=== PATIENT | male | born 1965 | race Caucasian/White ===

== ENCOUNTER 2016-10-10 16:19 | Inpatient (IN) | payer OTHER ==
[~2016-10-10] VITALS: Ht 175.3 cm; Wt 71.5 kg
[~2016-10-10 16:19] MED LIST: ACET-1256 PO; AMLO-114 PO; ASPEC81 PO; ATOR-24 PO; CALC625T PO; DOCU-94 PO; FLUT0.0533; LPR25 PO; LSN25 PO; NTRSLP4 SL; PLV75 PO; VITAOIN TOP; ZNTT/150 PO
--- NOTE | 2016-10-10 16:35 | EMERGENCY ROOM VISIT NOTE ---
History Report prepared by Milagros: Harpal Meyer Under the Supervision of: Dr. Benjamin Varela D.O. First contact with patient: 16:24 Stated Complaint: CHEST PAIN /FR [facility] History of Present Illness The patient is a 51 year old male who presents to the Emergency Room with complaints of intermittent left-sided chest pain that started at 1435 today. The pain was initially constant but has not become intermittent. The pain is worse with movement but not with breathing. He has some shortness of breath. He denies nausea or vomiting, leg pain or swelling. He was given Aspirin and nitroglycerin prior to arrival. The patient has a history of NM, for which he was seen by [facility]. He had three stents placed. His discomfort today feels like previous NM but is less severe. He also has a history of neuropathy. He is a smoker. The patient is a prisoner at [facility]. Source of History: patient Onset: 1435 today Position: chest (left) Timing: intermittent Modifying Factors (Worsening): movement Associated Symptoms: + SOB, No nausea, No vomiting Review of Systems See HPI for pertinent positives & negatives. A total of 10 systems reviewed and were otherwise negative. Past Medical & Surgical Medical Problems: (1) Chest pain radiating to arm (2) Chronic back pain (3) Coronary artery disease (4) Precordial chest pain Surgical Problems: (1) H/O percutaneous transluminal coronary angioplasty (2) Stented coronary artery Family History Heart disease Hypertension Stroke Social History Smoking Status: Current Every Day Smoker Alcohol Use: none Drug Use: none Marital Status: single Housing Status: other Current/Historical Medications Scheduled Amlodipine (Norvasc), 10 MG PO DAILY Aspirin (Aspirin EC Low Dose), 81 MG PO QAM Atorvastatin (Lipitor), 40 MG PO DAILY Calcium Polycarbophil (Fibercon), 2 CAP PO BID Clopidogrel Bisulfate (Clopidogrel), 75 MG PO QAM Docusate Sodium (Colace), 100 MG PO BID Fluticasone Propionate (Cutivate), 1 APPLN TID Lisinopril (Lisinopril), 2.5 MG PO QAM Metoprolol Tartrate (Lopressor), 12.5 MG PO BID Ranitidine (Zantac), 150 MG PO BID Vitamins A & D (Topical) (Vitamin A & D), 1 APPLN TOP BID Scheduled PRN Acetaminophen (Tylenol), 1,000 MG PO BID PRN for Headache Nitroglycerin (Nitrostat), 0.4 MG SL UD PRN for Chest Pain Allergies Coded Allergies: BEE STING (Verified Allergy, Unknown, ANAPHYLAXIS, 10/10/16) Uncoded Allergies: STEROIDS (Allergy, Intermediate, TACHYCARDIA, 05/12/15) SEAFOOD (Allergy, Unknown, UNKNOWN, 01/01/16) Physical Exam Vital Signs Date Time Temp Pulse Resp B/P Pulse Ox O2 Delivery O2 Flow Rate FiO2 10/10/16 20:00 57 18 130/88 97 Room Air 10/10/16 19:24 57 18 118/74 97 Room Air 10/10/16 17:56 75 18 155/94 96 Room Air 10/10/16 17:04 58 10/10/16 16:35 96 Room Air 10/10/16 16:30 36.7 60 18 122/75 96 Room Air 10/10/16 16:30 96 Room Air Physical Exam GENERAL: Patient is awake, alert, and in no acute distress. Patient is resting comfortably and showing no signs of anxiety EYES: The conjunctivae are clear. The pupils are round and reactive. EARS, NOSE, MOUTH AND THROAT: The nose is without any evidence of any deformity. Mucous membranes are moist tongue is midline NECK: The neck is nontender and supple. RESPIRATORY: Normal respiratory effort is noted there is no evidence of wheezing rhonchi or rales CARDIOVASCULAR: Regular rate and rhythm noted there no murmurs rubs or gallops normal S1 normal S2 GASTROINTESTINAL: The abdomen is soft. Bowel sounds are present in all quadrants. Abdomen is nontender MUSCULOSKELETAL/EXTREMITIES: There is no evidence of gross deformity full range of motion is noted in the hips and shoulders SKIN: There is no obvious evidence of any rash. There are no petechiae, pallor or cyanosis noted. NEUROLOGIC: Patient is awake alert and oriented x3. Medical Decision & Procedures ER Provider Diagnostic Interpretation: X-ray results as stated below per interpretation by me and the radiologist. CHEST ONE VIEW PORTABLE HISTORY: Atypical CHEST PAIN COMPARISON: Chest 05/31/2016. FINDINGS: Possible 7 mm nodule within the left midlung zone. The lungs are otherwise clear. The heart is normal in size. No pleural fusions. No pneumothorax. IMPRESSION: 1. No acute process within the chest. 2. Possible 7 mm nodule within the left midlung zone. Follow-up nonemergent PA and lateral views of the chest with shallow oblique views or nonemergent chest CT is recommended for confirmation. Electronically signed by: Kendrick Connell M.D. 10/10/2016 5:13 PM Dictated Date/Time: 10/10/2016 5:10 PM Laboratory Results Test 10/10/16 16:35 10/10/16 17:00 Immature Granulocyte % (Auto) 0.2 % White Blood Count 6.13 K/uL (4.8-10.8) Red Blood Count 4.51 M/uL (4.7-6.1) Hemoglobin 14.0 g/dL (14.0-18.0) Hematocrit 39.2 % (42-52) Mean Corpuscular Volume 86.9 fL (80-100) Mean Corpuscular Hemoglobin 31.0 pg (25-34) Mean Corpuscular Hemoglobin Concent 35.7 g/dl (32-36) Platelet Count 176 K/uL (130-400) Mean Platelet Volume 11.6 fL (7.4-10.4) Neutrophils (%) (Auto) 61.0 % Lymphocytes (%) (Auto) 25.0 % Monocytes (%) (Auto) 10.9 % Eosinophils (%) (Auto) 2.9 % Basophils (%) (Auto) 0.0 % Neutrophils # (Auto) 3.74 K/uL (1.4-6.5) Lymphocytes # (Auto) 1.53 K/uL (1.2-3.4) Monocytes # (Auto) 0.67 K/uL (0.11-0.59) Eosinophils # (Auto) 0.18 K/uL (0-0.5) Basophils # (Auto) 0.00 K/uL (0-0.2) Immature Granulocyte # (Auto) 0.01 K/uL (0.00-0.02) Prothrombin Time 10.7 SECONDS (9.0-12.0) Prothromb Time International Ratio 1.0 (0.9-1.1) Activated Partial Thromboplast Time 25.2 SECONDS (21.0-31.0) Partial Thromboplastin Ratio 1.0 Total Bilirubin 0.8 mg/dl (0.2-1) Direct Bilirubin 0.2 mg/dl (0-0.2) Aspartate Amino Transf (AST/SGOT) 12 U/L (15-37) Alanine Aminotransferase (ALT/SGPT) 29 U/L (12-78) Alkaline Phosphatase 118 U/L (45-117) Total Protein 6.6 gm/dl (6.4-8.2) Albumin 3.8 gm/dl (3.4-5.0) Lipase 161 U/L (73-393) Urine Color YELLOW Urine Appearance CLEAR (CLEAR) Urine pH 6.5 (4.5-7.5) Urine Specific [place] 1.016 (1.000-1.030) Urine Protein NEG (NEG) Urine Glucose (UA) NEG (NEG) Urine Ketones NEG (NEG) Urine Occult Blood NEG (NEG) Urine Nitrite NEG (NEG) Urine Bilirubin NEG (NEG) Urine Urobilinogen NEG (NEG) Urine Leukocyte Esterase NEG (NEG) Laboratory results per my review. Medications Administered Medications (Trade) Dose Ordered Sig/Lisa Route Start Time Stop Time Status Last Admin Dose Admin Acetaminophen (Tylenol Tab) 650 mg Q4H PRN PO 10/10/16 20:00 11/09/16 19:59 10/11/16 12:22 650 MG ECG Indication: chest pain Rate (beats per minute): 56 Rhythm: sinus bradycardia Findings: T-wave inversion (Inferior), no acute ischemic change, no ectopy Comparison ECG Date: 2015 Change: no significant change ED Course 1625: The patient was evaluated in room B9. A complete history and physical examination were performed. 1754: The patient is complaining of worsening pain. 2034: [facility] The [facility] will be [facility]. Medical Decision Prior records/ancillary studies reviewed. Triage Nursing notes reviewed. Additional history obtained from nursing. The patient's history was concerning for chest pain. Differential diagnosis: Etiologies such as cardiac ischemia, aortic dissection, pulmonary embolism, pneumonia, pneumothorax, musculoskeletal, infections, pericarditis, myocarditis , esophageal rupture, gastrointestinal, as well as others were entertained. The patient is a 51-year-old male who has a history of coronary artery disease who presented to the emergency department for evaluation of multiple episodes of angina. The patient took nitroglycerin prior to arrival with minimal improvement. I discussed the patient's laboratory and radiographic studies with him. I also discussed the limitations of the emergency department workup for chest pain with him. Given his risk factors and pain I discussed his case with the on-call [facility] [place] hospitalist group. They've agreed to evaluate the patient in the emergency department for further management and disposition. Consults Time Called: 2024 [facility] Returned Call: [phone]: [facility] The patient will be evaluated. Impression Primary Impression: Left sided chest pain Scribe Attestation The scribe's documentation has been prepared under my direction and personally reviewed by me in its entirety. I confirm that the note above accurately reflects all work, treatment, procedures, and medical decision making performed by me. Departure Information Dispostion Being Evaluated By Hospitalist Referrals Christy PERALTA (PCP)
[2016-10-10 17:03] LABS: COMPLETE YES; EOS % 2.9 %; HEMATOCRIT 39.2 % (42-52); IG% 0.2 %; LYMPH ABS # 1.53 K/uL (1.2-3.4); MEAN CELL VOLUME 86.9 fL (80-100); MEAN CORPUSCULAR HGB CONC 35.7 g/dl (32-36); MEAN PLATELET VOLUME 11.6 fL (7.4-10.4); MONO % 10.9 %; PLATELET COUNT 176 K/uL (130-400); RED BLOOD COUNT 4.51 M/uL (4.7-6.1); WHITE BLOOD COUNT 6.13 K/uL (4.8-10.8)
[2016-10-10 17:10] LABS: PROTHROMBIN TIME (PATIENT) 10.7 SECONDS (9.0-12.0)
[2016-10-10 17:11] LABS: ALT/SGPT 29 U/L (12-78); AST/SGOT 12 U/L (15-37); BLOOD UREA NITROGEN 21 mg/dl (7-18); BUN/CREATININE RATIO 19.4 (10-20); CALCIUM 8.8 mg/dl (8.5-10.1); CARBON DIOXIDE 28 mmol/L (21-32); CHLORIDE 111 mmol/L (98-107); GLUCOSE 99 mg/dl (70-99); POTASSIUM 4.1 mmol/L (3.5-5.1); SODIUM 145 mmol/L (136-145)
--- NOTE | 2016-10-10 17:16 | DIAGNOSTIC IMAGING REPORT ---
CHEST ONE VIEW PORTABLE HISTORY: Atypical CHEST PAIN COMPARISON: Chest 05/31/2016. FINDINGS: Possible 7 mm nodule within the left midlung zone. The lungs are otherwise clear. The heart is normal in size. No pleural fusions. No pneumothorax. IMPRESSION: 1. No acute process within the chest. 2. Possible 7 mm nodule within the left midlung zone. Follow-up nonemergent PA and lateral views of the chest with shallow oblique views or nonemergent chest CT is recommended for confirmation. Electronically signed by: Kendrick Connell M.D. 10/10/2016 5:13 PM Dictated Date/Time: 10/10/2016 5:10 PM
[2016-10-10 17:17] LABS: ALKALINE PHOSPHATASE 118 U/L (45-117)
[2016-10-10 17:24] LABS: URINE APPEARANCE CLEAR (CLEAR); URINE BILIRUBIN NEG (NEG); URINE COLOR YELLOW; URINE NITRITE NEG (NEG); URINE PH 6.5 (4.5-7.5); URINE SPECIFIC GRAVITY 1.016 (1.000-1.030); UROBILINOGEN NEG (NEG)
[2016-10-10 17:31] LABS: MANUAL MICROSCOPIC REQUIRED? NO; REVIEW REQ? NO
[2016-10-10] MEDS ORDERED: ALUMINUM/MAGNESIUM/SIMETH (MAALOX MAX) 30 ML UDC PO PRN (20:00)
[2016-10-10] MEDS ORDERED: NITROGLYCERIN 0.4 MG SL PER TAB CHARGE SL PRN ×2 (20:00)
[2016-10-10] MEDS ORDERED: ACETAMINOPHEN 500 MG TAB PO PRN (20:00)
[2016-10-10] MEDS ORDERED: MoRPHine SULFATE 2 MG/ML CARP IV PRN (20:00)
[2016-10-10] MEDS ORDERED: MAGNESIUM HYDROXIDE SUSP 30 ML UDC PO PRN (20:00)
[2016-10-10] MEDS ORDERED: ONDANSETRON INJ 2 MG/ML 2 ML VIAL IV PRN (20:00)
[2016-10-10] MEDS ORDERED: MoRPHine SULFATE 2 MG/ML CARP IV STA (20:06)
--- NOTE | 2016-10-10 20:06 | History and Physical ---
History & Physical Date & Time of Service: Oct 10, 2016 at 20:05 Chief Complaint: Chest Pain /Fr [facility] Primary Care Physician: Christy PERALTA History of Present Illness 51-year-old male from [facility] with past medical history of coronary artery disease status post cardiac stents, chronic back pain presented to the ER with complaints of chest pressure which started this afternoon about 2 PM while he was walking. The pain was in the center of his chest with no radiation about a 5 /10 in severity. It was associated with shortness of breath, flushing sensation, diaphoresis. He was given nitroglycerin 3, aspirin prior to arrival. He denied any nausea or vomiting, abdominal pain, palpitations . He denied any fever with chills, coughing, leg swelling. He has an extensive smoking history and continues to smoke about a pack per day. He also has a very significant family history of heart disease. Past Medical/Surgical History Medical Problems: (1) Coronary artery disease Status: Chronic Surgical Problems: (1) H/O percutaneous transluminal coronary angioplasty Status: Resolved (2) Stented coronary artery Status: Chronic Family History Heart disease Hypertension Stroke Social History Smoking Status: Current Every Day Smoker Drug Use: none Marital Status: single Allergies Coded Allergies: BEE STING (Verified Allergy, Unknown, ANAPHYLAXIS, 10/10/16) Uncoded Allergies: STEROIDS (Allergy, Intermediate, TACHYCARDIA, 05/12/15) SEAFOOD (Allergy, Unknown, UNKNOWN, 01/01/16) Home Medications Scheduled Acetaminophen (Tylenol Arthritis Ext Rel), 650 MG PO Q8H Amlodipine (Norvasc), 10 MG PO DAILY Aspirin (Aspirin EC Low Dose), 81 MG PO QAM Atorvastatin (Lipitor), 40 MG PO DAILY Calcium Polycarbophil (Fibercon), 2 CAP PO BID Clopidogrel Bisulfate (Clopidogrel), 75 MG PO QAM Diclofenac Sod (Voltaren), 1 GM EX QID Docusate Sodium (Colace), 100 MG PO BID Fluticasone Propionate (Cutivate), 1 APPLN TID Lisinopril (Lisinopril), 2.5 MG PO QAM Metoprolol Tartrate (Lopressor), 12.5 MG PO BID Omeprazole (Omeprazole), 1 TAB PO BID Vitamins A & D (Topical) (Vitamin A & D), 1 APPLN TOP BID Scheduled PRN Nitroglycerin (Nitrostat), 0.4 MG SL UD PRN for Chest Pain Review of Systems Constitutional: No chills, No fever Eyes: No worsening of vision ENT: No hearing loss Respiratory: + shortness of breath, No cough, No sputum Cardiovascular: + chest pain, No edema Abdomen: No nausea, No pain, No vomiting Musculoskeletal: No joint pain Genitourinary - Male: No dysuria, No hematuria Neurologic: No memory loss Psychiatric: No depression symptoms Endocrine: No fatigue Hematologic / Lymphatic: No abnormal bleeding/bruising Integumentary: No rash Physical Exam Vital Signs Date Time Temp Pulse Resp B/P Pulse Ox O2 Delivery O2 Flow Rate FiO2 10/10/16 17:56 75 18 155/94 96 Room Air 10/10/16 17:04 58 10/10/16 16:35 96 Room Air 10/10/16 16:30 36.7 60 18 122/75 96 Room Air 10/10/16 16:30 96 Room Air General Appearance: WD/WN, no apparent distress Head: normocephalic Eyes: normal inspection ENT: normal ENT inspection, hearing grossly normal Neck: supple Respiratory/Chest: chest non-tender, lungs clear, normal breath sounds, no respiratory distress, no accessory muscle use Cardiovascular: regular rate, rhythm, no edema Abdomen/GI: normal bowel sounds, non tender, soft Extremities/Musculoskelatal: no pedal edema, normal range of motion Neurologic/Psych: alert, normal mood/affect, oriented x 3 Skin: normal color Diagnostics Laboratory Results Results Past 24 Hours Test 10/10/16 16:35 10/10/16 17:00 Range/Units White Blood Count 6.13 4.8-10.8 K/uL Red Blood Count 4.51 4.7-6.1 M/uL Hemoglobin 14.0 14.0-18.0 g/dL Hematocrit 39.2 42-52 % Mean Corpuscular Volume 86.9 80-100 fL Mean Corpuscular Hemoglobin 31.0 25-34 pg Mean Corpuscular Hemoglobin Concent 35.7 32-36 g/dl Platelet Count 176 130-400 K/uL Mean Platelet Volume 11.6 7.4-10.4 fL Neutrophils (%) (Auto) 61.0 % Lymphocytes (%) (Auto) 25.0 % Monocytes (%) (Auto) 10.9 % Eosinophils (%) (Auto) 2.9 % Basophils (%) (Auto) 0.0 % Neutrophils # (Auto) 3.74 1.4-6.5 K/uL Lymphocytes # (Auto) 1.53 1.2-3.4 K/uL Monocytes # (Auto) 0.67 0.11-0.59 K/uL Eosinophils # (Auto) 0.18 0-0.5 K/uL Basophils # (Auto) 0.00 0-0.2 K/uL RDW Standard Deviation 38.6 36.4-46.3 fL RDW Coefficient of Variation 12.2 11.5-14.5 % Immature Granulocyte % (Auto) 0.2 % Immature Granulocyte # (Auto) 0.01 0.00-0.02 K/uL Prothrombin Time 10.7 9.0-12.0 SECONDS Prothromb Time International Ratio 1.0 0.9-1.1 Activated Partial Thromboplast Time 25.2 21.0-31.0 SECONDS Partial Thromboplastin Ratio 1.0 Sodium Level 145 136-145 mmol/L Potassium Level 4.1 3.5-5.1 mmol/L Chloride Level 111 98-107 mmol/L Carbon Dioxide Level 28 21-32 mmol/L Anion Gap 6.0 3-11 mmol/L Blood Urea Nitrogen 21 7-18 mg/dl Creatinine 1.10 0.60-1.40 mg/dl Est Creatinine Clear Calc Drug Dose 77.7 ml/min Estimated GFR () 88.4 Estimated GFR (Non- 76.2 BUN/Creatinine Ratio 19.4 10-20 Random Glucose 99 70-99 mg/dl Calcium Level 8.8 8.5-10.1 mg/dl Total Bilirubin 0.8 0.2-1 mg/dl Direct Bilirubin 0.2 0-0.2 mg/dl Aspartate Amino Transf (AST/SGOT) 12 15-37 U/L Alanine Aminotransferase (ALT/SGPT) 29 12-78 U/L Alkaline Phosphatase 118 45-117 U/L Troponin I < 0.015 0-0.045 ng/ml Total Protein 6.6 6.4-8.2 gm/dl Albumin 3.8 3.4-5.0 gm/dl Lipase 161 73-393 U/L Urine Color YELLOW Urine Appearance CLEAR CLEAR Urine pH 6.5 4.5-7.5 Urine Specific [place] 1.016 1.000-1.030 Urine Protein NEG NEG Urine Glucose (UA) NEG NEG Urine Ketones NEG NEG Urine Occult Blood NEG NEG Urine Nitrite NEG NEG Urine Bilirubin NEG NEG Urine Urobilinogen NEG NEG Urine Leukocyte Esterase NEG NEG Diagnostic Radiology CHEST ONE VIEW PORTABLE HISTORY: Atypical CHEST PAIN COMPARISON: Chest 05/31/2016. FINDINGS: Possible 7 mm nodule within the left midlung zone. The lungs are otherwise clear. The heart is normal in size. No pleural fusions. No pneumothorax. IMPRESSION: 1. No acute process within the chest. 2. Possible 7 mm nodule within the left midlung zone. Follow-up nonemergent PA and lateral views of the chest with shallow oblique views or nonemergent chest CT is recommended for confirmation. Electronically signed by: Kendrick Connell M.D. 10/10/2016 5:13 PM Dictated Date/Time: 10/10/2016 5:10 PM EKG Sinus bradycardia Possible Inferior infarct (cited on or before 01-JAN-2016) Abnormal ECG When compared with ECG of 31-MAY-2016 13:47, No significant change was found Confirmed by MIN MOORE ([id number]) on 10/10/2016 8:19:00 PM Impression Assessment and Plan 51-year-old male from [facility] with past medical history of coronary artery disease status post cardiac stents, chronic back pain presented to the ER with complaints of chest pain and shortness of breath which started this afternoon about 2 PM while he was walking. Chest pain /Unstable angina: EKG: Chest x-ray: Negative - Initial troponin negative, trend troponins every 8 hours - Cardiology consult. - Continue aspirin and Plavix, beta chico, lisinopril, statin Hypertension: - Continue amlodipine and lisinopril Pulmonary nodule on chest x-ray: Chest x-ray: - Possible 7 mm nodule within the left midlung zone. Follow-up nonemergent PA and lateral views of the chest with shallow oblique views or nonemergent chest CT is recommended for confirmation. - Will need follow-up as an outpatient GERD: Continue ranitidine Smoking cessation counselling Declined nicoderm patch DVT prophylaxis: Lovenox Full code Disposition:admitted to telemetry Level of Care Telemetry Resuscitation Status FULL RESUSCITATION VTE Prophylaxis VTE Risk Assessment Done? Y/N: Yes Risk Level: Moderate Given or contraindicated: Enoxaparin (Lovenox)SQ Resident Tracking Resident Involvement: Resident Care Provided Care Provided: Adult [facility] Medicine Assessment and Plan Attending Addendum: I have physically seen and examined this patient, have directed their medical care, have supervised the medical residents activities, and agree with the H&P as noted above, with the following changes: NONE
[2016-10-10] MEDS ORDERED: NITROGLYCERIN OINT 2% 1GM PACKET EXT SCH (20:15)
[2016-10-10] MEDS ORDERED: NITROGLYCERIN OINT 2% 1GM PACKET ONE (20:53)
[2016-10-10 21:35] VITALS: BP 119/73; PULSE 54; TEMP 36.5; O2SAT 97; Ht 175.3 cm; Wt 71.5 kg
[2016-10-10] MEDS: SODIUM CHLORIDE 0.9% 1000ML 1,000 ML IV SCH (22:13)
[2016-10-10] MEDS: ENOXAPARIN 40 MG/0.4 ML SYR SC SCH (22:14)
[2016-10-10] MEDS: RANITIDINE HCL 150 MG TAB PO SCH (22:15)
[2016-10-10] MEDS: METOPROLOL TARTRATE 25 MG TAB PO SCH (22:15)
[2016-10-10] MEDS: DOCUSATE SODIUM 100 MG CAP PO SCH (22:16)
[2016-10-10 23:31] VITALS: BP 115/74; PULSE 52; TEMP 36.6; O2SAT 96
[2016-10-11] VITALS (7 sets, daily range): BP systolic 104–125; BP diastolic 61–79; PULSE 52–54; TEMP 36.4–37; O2SAT 94–96
[2016-10-11] MEDS: ACETAMINOPHEN 325 MG TAB PO PRN ×3 (00:43→12:22)
[2016-10-11] MEDS: ENOXAPARIN 40 MG/0.4 ML SYR SC SCH (00:50)
[2016-10-11] MEDS: NITROGLYCERIN OINT 2% 1GM PACKET EXT SCH ×3 (02:13→15:13)
[2016-10-11 06:04] LABS: HEMATOCRIT 37.6 % (42-52); MEAN CELL VOLUME 87.4 fL (80-100); MEAN CORPUSCULAR HEMOGLOBIN 31.4 pg (25-34); MEAN CORPUSCULAR HGB CONC 35.9 g/dl (32-36); MEAN PLATELET VOLUME 11.5 fL (7.4-10.4); PLATELET COUNT 172 K/uL (130-400); WHITE BLOOD COUNT 6.41 K/uL (4.8-10.8)
[2016-10-11 06:41] LABS: BUN/CREATININE RATIO 24.5 (10-20); CALCIUM 8.3 mg/dl (8.5-10.1); CREATININE 0.85 mg/dl (0.60-1.40); POTASSIUM 3.5 mmol/L (3.5-5.1)
--- NOTE | 2016-10-11 08:12 | Family Medicine Progress Note ---
Progress Note Date of Service Oct 11, 2016. Objective Vital Signs Date Time Temp Pulse Resp B/P Pulse Ox O2 Delivery O2 Flow Rate FiO2 10/11/16 07:36 37.0 54 22 104/61 94 Room Air 10/11/16 04:28 36.4 52 16 125/66 95 Room Air 10/11/16 04:00 Room Air 10/10/16 23:59 Room Air 10/10/16 23:31 36.6 52 18 115/74 96 Room Air 10/10/16 21:35 36.5 54 16 119/73 97 Nasal Cannula 2.0 10/10/16 20:58 62 16 131/82 97 Room Air 10/10/16 20:00 57 18 130/88 97 Room Air 10/10/16 19:24 57 18 118/74 97 Room Air 10/10/16 17:56 75 18 155/94 96 Room Air 10/10/16 17:04 58 10/10/16 16:35 96 Room Air 10/10/16 16:30 36.7 60 18 122/75 96 Room Air 10/10/16 16:30 96 Room Air Assessment and Plan 51-year-old male from [facility] with past medical history of coronary artery disease status post cardiac stents, chronic back pain presented to the ER with complaints of chest pain and shortness of breath which started this afternoon about 2 PM while he was walking. Chest pain /Unstable angina: EKG: Chest x-ray: Negative - Initial troponin negative, trend troponins every 8 hours - Cardiology consult. - Continue aspirin and Plavix, beta chico, lisinopril, statin Hypertension: - Continue amlodipine and lisinopril Pulmonary nodule on chest x-ray: Chest x-ray: - Possible 7 mm nodule within the left midlung zone. Follow-up nonemergent PA and lateral views of the chest with shallow oblique views or nonemergent chest CT is recommended for confirmation. - Will need follow-up as an outpatient GERD: Continue ranitidine Smoking cessation counselling Declined nicoderm patch DVT prophylaxis: Lovenox Full code Resident Tracking Resident Involvement: Resident Care Provided Care Provided: Adult Hospital Medicine
[2016-10-11] MEDS: RANITIDINE HCL 150 MG TAB PO SCH (08:17)
[2016-10-11] MEDS: DOCUSATE SODIUM 100 MG CAP PO SCH (08:18)
[2016-10-11] MEDS: METOPROLOL TARTRATE 25 MG TAB PO SCH (08:18)
[2016-10-11] MEDS ORDERED: ASPIRIN 81 MG ECTAB PO SCH (09:00)
[2016-10-11] MEDS ORDERED: CLOPIDOGREL BISULFATE 75 MG TAB PO SCH (09:00)
[2016-10-11] MEDS ORDERED: AMLODIPINE BESYLATE 5 MG TAB PO SCH (09:00)
[2016-10-11] MEDS ORDERED: ATORVASTATIN 20 MG TAB PO SCH (09:00)
[2016-10-11] MEDS ORDERED: LISINOPRIL 2.5 MG TAB PO SCH (09:00)
[2016-10-11] MEDS: SODIUM CHLORIDE 0.9% 1000ML 1,000 ML IV SCH (10:34)
--- NOTE | 2016-10-11 15:04 | CARDIOLOGY CONSULTATION ---
DATE OF CONSULTATION: 10/11/2016 TIME: 14:15. CONSULTING PHYSICIAN: Dr. Elliott. REASON FOR CONSULTATION: Chest pain. HISTORY OF PRESENT ILLNESS: Mr. Clark is a pleasant 51-year-old gentleman with a history significant for hypertension, dyslipidemia, and CAD status post RCA STEMI in December of 2015, who presented with chest discomfort to [facility] on 10/10/2016. He states that he walks 2-3 miles 3-4 days per week without any symptoms. He has been experiencing atypical chest discomfort intermittently ever since his CA. It occurs every 2-3 weeks and is described as a substernal chest discomfort that would last for a few minutes and sometimes be accompanied by palpitations. He would take nitroglycerin, which would typically help resolve symptoms. These symptoms are once again only occur at night and nonexertional. Yesterday at 14:35 p.m. while walking, he developed similar symptoms, described as substernal chest discomfort, which radiated to his neck. The neck radiation occurred more so overnight. He was told that he was pale in appearance. Within 5 minutes, he took nitroglycerin, but his symptoms worsen. Eight minutes later, he took another nitroglycerin and symptoms started to improve, but remain. He then took a third nitroglycerin. Symptoms persisted and continue to persist through to today without any resolution. Symptoms are not worsened with exertion. There is no other specific triggers such as eating. He wonders that it could be due to cervical spine issues as he had been discussing cervical spine issues with the surgeon. He was hospitalized in May of 2016 with chest discomfort, which was prolonged with negative cardiac enzymes. No further ischemic evaluation was done at that time. He denies melena, hematochezia, hematuria, or other bleeding. He denies abdominal pain, nausea, vomiting, syncope, or near syncope. REVIEW OF SYSTEMS: As above and other review of systems otherwise negative. PAST MEDICAL HISTORY: 1. CAD status post RCA STEMI and PCI on 01/01/2016. Cardiac catheterization demonstrated distal left main 20%, ostial LAD 20%, proximal LAD 30%, mid LAD 50% and 30%, and distal LAD up to 10%. D1 ostial 20%. Proximal D1 at 30%. Mid circumflex 50%. Diffuse proximal OM3 at 50%-80%. Proximal RCA 30%. Mid RCA 100%. Distal RCA 50% and 30%. Right PDA proximal 90% and mid 30%-50%. EF was 60% and there was hypokinesis of the inferior wall. He underwent a 3 x 30-mm and 3.5 x 22-mm drug-eluting Resolute stent in an overlapping fashion, first in the mid to distal RCA and then second in the distal stent and the proximal to the first stent. The proximal and mid segments were then postdilated with a 3.75-mm noncompliant balloon. 2. Hypertension. 3. Dyslipidemia. 4. Cervical spine issues. HOME MEDICATIONS: Include aspirin 81 mg daily, Plavix 75 mg daily, lisinopril 2.5 mg daily, metoprolol tartrate 12.5 mg p.o. b.i.d., atorvastatin 40 mg daily, amlodipine 10 mg daily, and ranitidine 150 mg p.o. b.i.d. CURRENT INPATIENT MEDICATIONS: Include aspirin 81 mg daily, Plavix 75 mg daily, amlodipine 10 mg daily, lisinopril 2.5 mg daily, metoprolol tartrate 12.5 mg p.o. b.i.d., and ranitidine 150 mg p.o. b.i.d. ALLERGIES: INCLUDE BEE STINGS, STEROIDS AND SEAFOOD. SOCIAL HISTORY: Continue to smoke 1 pack per day up until this hospitalization. No alcohol. He is . Three children. Currently incarcerated at [facility]. FAMILY HISTORY: His father had a stroke and brain aneurysm. He has 3 siblings with CAD, 4 siblings with pacemaker and mother with a pacemaker. PHYSICAL EXAMINATION: VITAL SIGNS: Temperature 36.9 degrees, heart rate 52 beats per minute, respiratory rate 22, blood pressure 116/72 mmHg, and oxygen saturation 96% on room air. Weight 71.5 kg. GENERAL: No acute distress. He is alert and oriented. HEENT: Anicteric sclerae. NECK: No appreciable JVD. No bruits. Normal carotid upstrokes bilaterally. CARDIAC EXAMINATION: PMI was not displaced. There was no ventricular heave. Regular, normal S1 and S2. No audible murmurs, rubs or gallops. LUNGS: Clear to auscultation bilaterally without wheezes, rales or rhonchi. ABDOMEN: Soft, nontender, and nondistended. Normoactive bowel sounds. No bruits noted. EXTREMITIES: 2+ radial pulses bilaterally. 2+ dorsalis pedis pulses bilaterally. No cyanosis. No palpable cords. No pitting edema. PSYCHIATRIC: Affect appears. CHEST: Nontender to palpation. DIAGNOSTIC STUDIES: ECG on presentation personally reviewed. Sinus bradycardia at 56 beats per minute. Possible inferior infarct. Repeat ECG on 10/10/2016 at 17:51, sinus rhythm at 70 beats per minute. Possible inferior infarct. Telemetry personally reviewed. No arrhythmia. LABORATORY DATA: Sodium 142, potassium 3.5, BUN 21, and creatinine 0.85. Troponins undetectable x3. AST 12 and ALT 29. Lipase 161. White blood cell count 6.4, hemoglobin 13.5, and platelets 172. INR is 1. Chest x-ray image, personally reviewed, no infiltrate. Radiology as interpreted no acute process, but did identify a possible 7-mm nodule within the left mid lung zone and have recommended followup. We will defer followup to the primary service. Most recent echocardiogram on 01/01/2016: Normal LV size with mild LVH. EF 55%. Inferior moderate to severe hypokinesis. No significant valvular abnormalities reported. ASSESSMENT AND PLAN: 1. Atypical chest pain: His chest pain does not appear to be consistent with ischemic heart disease as there have been prolonged episodes with negative cardiac enzymes. This is at least a second hospitalization since his myocardial infarction with similar symptoms. For this reason, noninvasive ischemic evaluation will be performed in the form of an exercise stress echo. There is no recommendation for cardiac catheterization at this time based on these symptoms alone, however. 2. Hypertension: Blood pressure adequately controlled. Continue current regimen. 3. Dyslipidemia: Continue high intensity statin therapy. 4. Coronary artery disease, status post right coronary artery percutaneous coronary intervention: He did have residual coronary artery disease as well. He does not appear to have angina. Continue aspirin 81 mg daily indefinitely. Continue Plavix for at least 1 year following a stent deployment. Continue high intensity statin therapy, beta chico and BENITO inhibitor. 5. Tobacco abuse: Recommended that he stop smoking. He states now that he knows about a lung nodule, he is very motivated to stop smoking. 6. Disposition: Stress echo ordered as above. If stress echo does not suggest high risk ischemic heart disease, would not recommend any further ischemic evaluation at this time. Would then defer to primary service to further investigate his ongoing chest discomfort, which continues to be present at this moment. Thank for allowing me to participate in care of Mr. Clark. Sincerely,
[2016-10-11] MEDS ORDERED: OMEP20TA PO (16:54)
[2016-10-11] MEDS ORDERED: ACET1TAB84 PO (16:54)
[2016-10-11] MEDS ORDERED: VLTG EX (16:54)
--- NOTE | 2016-10-11 16:57 | EXERCISE STRESS ECHO ---
*NOTICE TO RECEIVING [employer] This information is strictly Confidential and protected under [place] law. [place] law prohibits you from making any further disclosure of this information unless further disclosure is expressly permitted by the written consent of the person to whom it pertains or is authorized by law. A general authorization for the release of medical or other information is not sufficient for this purpose. Hospital accepts no responsibility if the information is made available to any other person, INCLUDING THE PATIENT. Interpretation Summary * Name: MONIQUE DENNIS [id number] Study Date: 10/11/2016 03:09 PM BP: 133/78 mmHg * Patient Location: C.2T\S\S233\S\1 HR: 60 * : 1965 (M/d/yyyy) Gender: Male Height: 68 in * Age: 51 yrs Ethnicity: CA Weight: 157 lb * Ordering Physician: Vinod Earl * Referring Physician: Christy PERALTA * Performed By: Wendy Herndon RDCS * * Reason For Study: Chest pain * BSA: 1.8 m2 * -- Conclusions -- * Stress Echo: * 1. Negative stress echo for ischemia at 92% MPHR. * 2. Negative exercise ECG for ischemia at 92% MPHR. * 3. Chest pain was present prior to exercise. Chest pain did not intensify during exercise. * 4. No arrhythmia. * 5. Appropriate blood pressure response to exercise. * 6. Good exercise tolerance. * 7. Resting echo images demonstrated normal left ventricular systolic function with evidence of small RCA infarct. EF 55-60%. No significant left ventricular hypertrophy. Normal left ventricular size. Procedure Details * ECHOEX, CPT #[id number] Left Ventricle * The left ventricle is normal in size. * There is normal left ventricular wall thickness. * Left ventricular systolic function is normal. * The left ventricular ejection fraction increases normally with stress. The left ventricular end-systolic cavity size reduces post-stress (normal response). The left ventricular wall motion with stress is normal. * Resting echo demonstrated hypokinesis of the septal base and akinesis of inferior base. Following exercise, the baseline wall motion abnormalities remained unchanged. Other wall segments augmented appropriately. Stress Parameters * Sinus bradycardia at 54 bpm. Nonspecific T-wave abnormality. * Stress ECG: No ST changes. No arrhythmias. * The stress portion of this study was personally supervised by the undersigned interpreting physician. * Rest heart rate was '60' BPM. * Rest blood pressure was '133/78' * Maximum heart rate achieved was 155 bpm. * Maximum heart rate was 92 % of maximum age-predicted heart rate. * Maximum blood pressure was '192/88' * Total exercise time was '10:01' * Maximum exercise MET level achieved was '11.70' METS * Maximum treadmill speed was '4.20' miles per hour. * Maximum treadmill elevation was '16.00'% grade. * Exercise was terminated due to 'achieving target heart rate' * Normal blood pressure response to exercise. MMode 2D Measurements and Calculations IVSd 1.1 cm LVIDd 4.8 cm LVIDs 3.2 cm LVPWd 0.97 cm IVS/LVPW 1.1 FS 33.1 % EDV(Teich) 106.0 ml ESV(Teich) 40.7 ml EF(Teich) 61.6 % EDV(cubed) 108.6 ml ESV(cubed) 32.5 ml EF(cubed) 70.1 % LV mass(C)d 172.5 grams LV mass(C)dI 93.5 grams/m\S\2 SV(Teich) 65.3 ml SI(Teich) 35.4 ml/m\S\2 SV(cubed) 76.1 ml SI(cubed) 41.2 ml/m\S\2 Ao root diam 3.6 cm Ao root area 10.0 cm\S\2
--- NOTE | 2016-10-11 17:01 | Discharge Instructions ---
Discharge Instructions Date of Service Oct 11, 2016. Admission Reason for Admission: Precordial Chest Pain Discharge Discharge Diagnosis / Problem: chest pain very likely gastrointestinal (see below) Discharge Goals Goal(s): Diagnostic testing, Therapeutic intervention Activity Recommendations Activity Limitations: resume your previous activity . Instructions / Follow-Up Instructions / Follow-Up chest pain - your cardiac enzymes were negative, cardiology consult felt that this was highly unlikely to be angina but because of your prior history felt it prudent to order a stress test - which was fortunately negative. most likely your chest pain was gastric in origin, and likely relates to the ibuprofen. to help this: -we'll want you to stop the ibuprofen -stop the ranitidine and substitute omeprazole twice a day instead (as a PPI instead of H2, it's a stronger medicine for acid suppression) -- we'll want you on this higher dosing regimen for somewhere between 1-3 months depending on how well you're doing and how quickly the symptoms resolve. after that, we'll want you back down to the ranitidine (intermodal dispatcher use of PPIs like omeprazole carry higher risks of nutrient malabsorptions and chronic kidney disease, so we try to limit use to as short of a time as necessary) to alternatively treat the back pain: -tylenol arthritis 650mg three times a day -voltaren gel 1 gram to the bad areas of your back four times a day --as we discussed, at first it may take several days for the voltaren gel to "kick in" - but in my experience it does as well or better as systemic anti- inflammatories for many patients. because it's a topical there's not much (if any) systemic absorption - making it pretty low risk on your stomach. --over the next week, figure "anything can happen" as far as the pain being worse, better, or about the same. after that, my expectation is that the regimen with the tylenol + voltaren gel together will do about the same for pain relief as the ibuprofen you were taking. it's also possible that the voltaren gel will do better than your prior regimen, in which case, if you're doing well with pain in 3-4 weeks, it would be reasonable to try to reduce the tylenol ---if the unfortunate happens and the tylenol and voltaren do not help with the pain, it would then be reasonable to try an alternate analgesic medication such as tramadol we'd want you to follow up at the [facility] next week to make sure the chest pain/stomach pain has improved enough, then follow up again in about 3 weeks to check on how well your back pain is going with the tylenol/voltaren Current Hospital Diet Patient's current hospital diet: AHA Diet (Heart Healthy) Discharge Diet Recommended Diet: AHA Diet (Heart Healthy) Pending Studies Studies pending at discharge: no Medical Emergencies . Who to Call and When: Medical Emergencies: If at any time you feel your situation is an emergency, please call 911 immediately. . Non-Emergent Contact Non-Emergency issues call your: Primary Care Provider . . "Provider Documentation" section prepared by Kyle Beltran. . VTE Core Measure Inpt VTE Proph given/why not?: Enoxaparin (Lovenox)SQ
--- NOTE | 2016-10-11 21:45 | Discharge Summary ---
Discharge Summary Date of Service Oct 11, 2016. Discharge Summary Admission Date: Oct 10, 2016 at 20:05 Discharge Date: Oct 11, 2016 Principal Diagnosis: Chest pain likely of gastric origin Medication Reconciliation New Medications: Acetaminophen (Tylenol Arthritis Ext Rel) 650 Mg Cplt 650 MG PO Q8H, #90 CAP Diclofenac Sod (Voltaren) 100 Appln/100 Gm Gel 1 GM EX QID, #100 GM Omeprazole (Omeprazole) 20 Mg Tab 1 TAB PO BID, #60 TAB 1 Refill Continued Medications: Amlodipine (Norvasc) 10 Mg Tab 10 MG PO DAILY, TAB Aspirin (Aspirin EC Low Dose) 81 Mg Ectab 81 MG PO QAM for 30 Days Atorvastatin (Lipitor) 40 Mg Tab 40 MG PO DAILY, TAB Calcium Polycarbophil (Fibercon) 625 Mg Tab 2 CAP PO BID Clopidogrel Bisulfate (Clopidogrel) 75 Mg Tab 75 MG PO QAM for 30 Days, #30 TAB Docusate Sodium (Colace) 100 Mg Cap 100 MG PO BID, CAP Fluticasone Propionate (Cutivate) 0.05 % Cre 1 APPLN TID Lisinopril (Lisinopril) 2.5 Mg Tab 2.5 MG PO QAM for 30 Days, #30 TAB Metoprolol Tartrate (Lopressor) 25 Mg Tab 12.5 MG PO BID Nitroglycerin (Nitrostat) 0.4 Mg/1 Tab Subl 0.4 MG SL UD PRN for Chest Pain for 30 Days, #25 Vitamins A & D (Topical) (Vitamin A & D) 1 Oin Oin 1 APPLN TOP BID Discontinued Medications: Acetaminophen (Tylenol) 500 Mg Tab 1000 MG PO BID PRN for Headache Ranitidine (Zantac) 150 Mg Tab 150 MG PO BID Discharge Exam Patient says the severity of his pain has reduced today, but that it is still present. He says that he is unsure of the trigger of the pain. It can happen with exertion but not always. Most commonly it occurs during the night while lying flat and improves when he is inclined in bed. He is not experiencing SOB, nausea, diaphoresis or palpitations. He is concerned that it took 3 nitroglycerin to reduce his chest pain symptoms. He does state that for the last 3 years, he has been taking Motrin 600mg TID for his chronic back pain. Review of Systems: Constitutional: No chills, No fever Respiratory: No cough, No shortness of breath Cardiovascular: + chest pain, + orthopnea, No PND, No edema, No palpitations Abdomen: No nausea, No pain, No vomiting Physical Exam: General Appearance: WD/WN, no apparent distress Eyes: normal inspection ENT: hearing grossly normal Respiratory/Chest: lungs clear, normal breath sounds, no respiratory distress, no accessory muscle use Cardiovascular: regular rate, rhythm, normal peripheral pulses Abdomen / GI: normal bowel sounds, non tender, soft Extremities: no calf tenderness, no pedal edema Neurologic/Psychiatric: alert, normal mood/affect, oriented x 3 Skin: normal color, warm/dry, no rash Hospital Course 51-year-old male from [facility] with past medical history of coronary artery disease status post cardiac stents, chronic back pain presented to the ER with complaints of chest pain and shortness of breath which started this afternoon about 2 PM while he was walking. Chest pain /Unstable angina - EKG: Normal sinus rhythm with evidence of previous infarct. Troponin x 3 negative. Cardiology consult. Negative stress echo for ischemia at 92% MPHR. Negative exercise ECG for ischemia at 92% MPHR. Chest pain was present prior to exercise but did not intensify during exercise - Continue aspirin and Plavix, beta chico, lisinopril, statin Gastric pain - due to chronic NSAID usage for chronic back pain - Discontinue Motrin - Start Tylenol 650mg TID and Voltaren gel 1 gram to the bad areas of your back QID - If Tylenol ineffective for pain management, consider tramadol - Switch from ranitidine to omeprazole 20mg BID for 1-3months (depending on symptom improvement) for stronger acid suppression to allow for healing Hypertension - Continue amlodipine and lisinopril Pulmonary nodule - Chest x-ray: possible 7 mm nodule within the left midlung zone - Requires outpatient follow-up with PA and lateral views of the chest with shallow oblique views. Chest CT may be required for confirmation GERD - Continue ranitidine after course of omeprazole completed Smoking cessation counselling - declined NicoDerm patch - Please avail of adequate resources for successful cessation Full code Total Time Spent: Less than 30 minutes This includes examination of the patient, discharge planning, medication reconciliation, and communication with other providers. Discharge Instructions Please refer to the electronic Patient Visit Report (Discharge Instructions) for additional information. Additional Copies To [facility] Resident Tracking Resident Involvement: Resident Care Provided Care Provided: Adult [facility]
== END 2016-10-11 19:00 | DRG 313 ==
LOC: ENRESERVDT → ENRESERVTM → EDBD 16:19 → C.EDB 16:23 → C.2T 20:05
PROVIDERS: ADMIT Family Medicine; ATTEND Hospitalist
DX: R07.89 Other chest pain (principal); T39.395A Adverse effect of other nonsteroidal anti-inflammatory drugs [NSAID], initial encounter; I25.2 Old myocardial infarction; I25.10 Atherosclerotic heart disease of native coronary artery without angina pectoris; G89.29 Other chronic pain; M54.9 Dorsalgia, unspecified; R91.1 Solitary pulmonary nodule; I10 Essential (primary) hypertension; E78.5 Hyperlipidemia, unspecified; K21.9 Gastro-esophageal reflux disease without esophagitis; G62.9 Polyneuropathy, unspecified; F17.210 Nicotine dependence, cigarettes, uncomplicated; Z95.5 Presence of coronary angioplasty implant and graft; Z82.49 Family history of ischemic heart disease and other diseases of the circulatory system; Z79.1 Long term (current) use of non-steroidal anti-inflammatories (NSAID); Z79.82 Long term (current) use of aspirin; Z79.02 Long term (current) use of antithrombotics/antiplatelets; Z79.899 Other long term (current) drug therapy